=== PATIENT | male | born 1960 | race Caucasian/White ===

== ENCOUNTER 2016-05-01 10:16 | Emergency (ER) | payer MEDICARE ==
[2016-05-01] MEDS ORDERED: CYCLOBENZAPRINE 10 MG TABLET PO STA (10:44)
[2016-05-01] MEDS ORDERED: LIDOCAINE PATCH 5% TOP STA (10:44)
[2016-05-01] MEDS ORDERED: LIDOCAINE PATCH 5% TOP ONE (10:47)
[2016-05-01] MEDS ORDERED: CYCLOBENZAPRINE 10 MG TABLET PO ONE (10:47)
== END 2016-05-01 11:03 | disposition home or self-care (01) ==
DX: S43.402A Unspecified sprain of left shoulder joint, initial encounter (principal); X58.XXXA Exposure to other specified factors, initial encounter; G40.909 Epilepsy, unspecified, not intractable, without status epilepticus

== ENCOUNTER 2016-05-01 17:18 | Emergency (ER) | payer MEDICARE ==
[2016-05-01] MEDS ORDERED: oxyCOD/ACETAMIN 5 MG/325 MG TABLET PO STA (17:46)
[2016-05-01] MEDS ORDERED: oxyCOD/ACETAMIN 5 MG/325 MG TABLET PO ONE (17:48)
== END 2016-05-01 19:02 | disposition home or self-care (01) ==
DX: S43.402A Unspecified sprain of left shoulder joint, initial encounter (principal); X58.XXXA Exposure to other specified factors, initial encounter; M25.812 Other specified joint disorders, left shoulder; G40.909 Epilepsy, unspecified, not intractable, without status epilepticus
CPT/HCPCS: 36415; 73030; 84484; 93005; 93010; 99283; 99284; A9270

== ENCOUNTER 2016-05-02 15:32 | Emergency (ER) | payer MEDICARE ==
[2016-05-02] MEDS ORDERED: oxyCOD/ACETAMIN 5 MG/325 MG TABLET PO STA (16:22)
[2016-05-02] MEDS ORDERED: oxyCOD/ACETAMIN 5 MG/325 MG TABLET PO ONE (16:32)
== END 2016-05-02 16:43 | disposition home or self-care (01) ==
DX: M25.512 Pain in left shoulder (principal); Z91.14 Patient's other noncompliance with medication regimen
CPT/HCPCS: 99283; A9270

== ENCOUNTER 2016-05-17 13:34 | Outpatient (CLI) | payer MEDICARE | END 2016-05-17 13:35 | disposition home or self-care (01) | DX: G40.109 Localization-related (focal) (partial) symptomatic epilepsy and epileptic syndromes with simple partial seizures, not intractable, without status epilepticus (principal) ==

== ENCOUNTER 2016-05-23 09:53 | Outpatient (CLI) | payer MEDICARE | END 2016-05-23 09:54 | disposition home or self-care (01) | DX: M19.071 Primary osteoarthritis, right ankle and foot (principal) ==

== ENCOUNTER 2016-07-08 09:04 | Outpatient (CLI) | payer MEDICARE | END 2016-07-08 09:05 | disposition home or self-care (01) | DX: M19.071 Primary osteoarthritis, right ankle and foot (principal); S92.414D Nondisplaced fracture of proximal phalanx of right great toe, subsequent encounter for fracture with routine healing ==

== ENCOUNTER 2016-07-23 09:13 | Outpatient (CLI) | payer MEDICARE | END 2016-07-23 09:14 | disposition home or self-care (01) | DX: G40.109 Localization-related (focal) (partial) symptomatic epilepsy and epileptic syndromes with simple partial seizures, not intractable, without status epilepticus (principal) ==

== ENCOUNTER 2016-10-05 15:13 | Outpatient (CLI) | payer MEDICARE ==
--- NOTE | 2016-10-06 09:05 | XRAY Report ---
COMPLETE LUMBAR SPINE: 10/05/2016 CLINICAL INDICATION: Chronic low back pain. COMPARISON: 07/05/2013 FINDINGS: AP, lateral, oblique, coned-down views of the lumbar spine demonstrate mild degenerative d isc and facet disease. Mild anterior wedge compression deformity of L1 is stable. Bilateral L5 pars defects are stable, with stable minimal anterolisthesis of L5 on S1. There is no evidence of interv al fracture. IMPRESSION: STABLE MILD DEGENERATIVE CHANGES, BILATERAL L5 PARS DEFECTS, AND MILD COMPRESSION DEFORM ITY OF L1. NO SIGNIFICANT INTERVAL CHANGE FROM 07/05/2013. JOB #: [id number] EXT JOB #:[id number]
== END 2016-10-05 15:14 | disposition home or self-care (01) ==
LOC: DI.N 15:13
PROVIDERS: ATTEND Family Medicine
DX: M51.16 Intervertebral disc disorders with radiculopathy, lumbar region (principal); M47.896 Other spondylosis, lumbar region; M43.8X6 Other specified deforming dorsopathies, lumbar region
CPT/HCPCS: 72110

== ENCOUNTER 2017-01-29 15:38 | Emergency (ER) | payer MEDICARE ==
[2017-01-29 16:00] VITALS: BP 152/85
[2017-01-29] MEDS ORDERED: oxyCODONE 5 MG TABLET PO STA (16:29)
--- NOTE | 2017-01-29 16:35 | ED Physician Documentation ---
History of Present Illness - Stated complaint Stated Complaint: TOOTH ACHE - Chief complaint Chief Complaint: Heent - Additonal information Additional information: hx from pt right upper 2nd molar pain has dentist appt for same tomorrow tried motrin and apap s relief (2 of each) no transport to pharmacy as buses dont run on Monday no fever Review of Systems Constitutional: denies: Fever Throat: reports: Dental pain / toothache PD PAST MEDICAL HISTORY - Past Medical History Past Medical History: Yes Respiratory: Pneumonia Neuro: Head injury, Seizure disorder, Other - Past Surgical History Past Surgical History: Yes - Present Medications Home Medications: Ambulatory Orders Medication Instructions Recorded Confirmed Lamotrigine 300 mg PO BID 03/04/13 01/29/17 Ibuprofen 400 mg PO ONCE PRN 07/27/15 01/29/17 levETIRAcetam [Keppra] 500 mg PO BID 08/02/15 01/29/17 - Allergies Allergies/Adverse Reactions: Allergies Allergy/AdvReac Type Severity Reaction Status Date / Time phenytoin sodium * Allergy Unknown unknown Verified 07/29/15 19:31 [From Dilantin] phenytoin sodium extended * Allergy Unknown unknown Verified 07/29/15 19:31 [From Dilantin] - Social History Does the pt smoke?: No Smoking Status: Never smoker Does the pt drink ETOH?: No Does the pt have substance abuse?: No - Immunizations Immunizations are current?: Yes - POLST Patient has POLST: No PD ED PE NORMAL - Vitals Vital signs reviewed: Yes - HEENT HEENT: Other (prior dental work and fillings, right upper 2nd molar s visible decay or abscess but tender, no trisumus or farcial swelling) - Cardiac Cardiac: RRR - Respiratory Respiratory: No respiratory distress Results - Vitals Vitals: Vital Signs - 24 hr 01/29/17 15:52 Temperature 36.7 C Heart Rate 56 L Respiratory 16 Rate Blood Pressure 152/85 H O2 Saturation 98 Oxygen O2 Source Room air Departure - Departure Disposition: 01 Home, Self Care Clinical Impression: Pain, dental Condition: Good Instructions: ED Tooth Pain Comments: The pain medication we gave you in the ER should last until you see the dentist tomorrow Please follow up with your PMD to get your blood pressure rechecked - it was high today
[2017-01-29] MEDS ORDERED: oxyCODONE 5 MG TABLET ONE (16:43)
== END 2017-01-29 16:43 | disposition home or self-care (01) ==
LOC: ED 15:38
DX: K08.89 Other specified disorders of teeth and supporting structures (principal); G40.909 Epilepsy, unspecified, not intractable, without status epilepticus
CPT/HCPCS: 99283

== ENCOUNTER 2017-01-29 17:35 | Emergency (ER) | payer MEDICARE ==
--- NOTE | 2017-01-29 19:11 | ED Physician Documentation ---
PD HPI LOWER EXT INJURY - Stated complaint Stated Complaint: RT TOE LAC - Chief complaint Chief Complaint: Laceration - History obtained from History obtained from: Patient - History of Present Illness PD HPI LOW EXT INJURY LOCATION: Left, Toe (great) Type of injury: Laceration (he was cutting nail (thick fungal nail) with scalpel and it slipped causing cut to top of toe.) Where injury occurred: Home Timing - onset: Today Timing - details: Abrupt onset, Still present (still bleeding some.) Associated symptoms: No: Weakness, Numbness Similar symptoms before: Has not had sx before Recently seen: Emergency Dept (for tooth problem earlier) Review of Systems Neurologic: denies: Focal weakness, Numbness PD PAST MEDICAL HISTORY - Past Medical History Past Medical History: Yes Respiratory: Pneumonia Neuro: Head injury, Seizure disorder, Other - Past Surgical History Past Surgical History: Yes - Present Medications Home Medications: Ambulatory Orders Medication Instructions Recorded Confirmed Lamotrigine 300 mg PO BID 03/04/13 01/29/17 Ibuprofen 400 mg PO ONCE PRN 07/27/15 01/29/17 levETIRAcetam [Keppra] 500 mg PO BID 08/02/15 01/29/17 - Allergies Allergies/Adverse Reactions: Allergies Allergy/AdvReac Type Severity Reaction Status Date / Time phenytoin sodium * Allergy Unknown unknown Verified 07/29/15 19:31 [From Dilantin] phenytoin sodium extended * Allergy Unknown unknown Verified 07/29/15 19:31 [From Dilantin] - Social History Does the pt smoke?: No Smoking Status: Never smoker Does the pt drink ETOH?: No Does the pt have substance abuse?: No - Immunizations Immunizations are current?: No Immunizations: TDAP >10years/unknown - POLST Patient has POLST: No PD ED PE NORMAL - Vitals Vital signs reviewed: Yes - General General: Alert and oriented X 3, No acute distress, Well developed/nourished - Derm Derm: Normal color, Warm and dry - Extremities Extremities: Other (dorsum left great toe with 1.5 cm lac not to deep structures. ) - Neuro Neuro: No motor deficit, No sensory deficit Results - Vitals Vitals: Oxygen O2 Source Room air Procedures - Laceration (location) dorsum left great toe Length in cm: 1.5 Wound type: Linear Neurovascular status: No: Sensory intact, Motor intact Anesthesia: Lidocaine 1% with epi Wound Preparation: Irrigated copiously NS Skin layer closure: Nylon, Running, Size #-0 - enter number (4), Sutures - enter # (8) Other: Patient tolerated well, No complications, Neurovascular intact, Dressing applied, Tetanus UTD Complexity: Simple PD MEDICAL DECISION MAKING - ED course Complexity details: considered differential, d/w patient Departure - Departure Disposition: 01 Home, Self Care Clinical Impression: Laceration of toe Qualifiers: Encounter type: initial encounter Toe: great toe Damage to nail status: without damage Foreign body presence: without foreign body Laterality: left Qualified Code(s): S91.112A - Laceration without foreign body of left great toe without damage to nail, initial encounter Condition: Stable Record reviewed to determine appropriate education?: Yes Instructions: ED Laceration Foot Follow-Up: London Ponce MD [Primary Care Provider] - Comments: It is okay to wash and shower. Clean off the wound twice a day with soap and water, or peroxide and water. Apply some antibiotic ointment to it to keep it moist. Also to watch for signs of infection such as purulence, redness or increasing pain. Return to your primary care or the ER at the specified time for suture removal. Suture removal and 10-12 days. Tylenol or ibuprofen if needed for pain. Regular activity is okay. Discharge Date/Time: 01/29/17 19:46
[2017-01-29 19:49] VITALS: BP 141/84
== END 2017-01-29 19:46 | disposition home or self-care (01) ==
LOC: ED 17:35
DX: S91.112A Laceration without foreign body of left great toe without damage to nail, initial encounter (principal); W26.8XXA Contact with other sharp object(s), not elsewhere classified, initial encounter; Y92.019 Unspecified place in single-family (private) house as the place of occurrence of the external cause; G40.909 Epilepsy, unspecified, not intractable, without status epilepticus; K08.89 Other specified disorders of teeth and supporting structures
CPT/HCPCS: 12001; 99282; 99283; A9270

== ENCOUNTER 2017-01-31 16:28 | Emergency (ER) | payer MEDICARE ==
[2017-01-31 16:40] VITALS: BP 173/95
[2017-01-31] MEDS: DEXAMETHASONE 10 MG/ML VIAL PO STA (17:40)
--- NOTE | 2017-01-31 17:41 | ED Physician Documentation ---
PD HPI HEENT - Stated complaint Stated Complaint: TOOTH PX - Chief complaint Chief Complaint: Heent - History obtained from History obtained from: Patient - History of Present Illness Timing - onset: How many days ago (4) Timing - duration: Days (4) Timing - details: Gradual onset, Still present Location: Tooth Improves: Medication Associated symptoms: Other (all teeth hurt this afternoon.). No: Fever, Congestion, Rhinorrhea, Trismus, Unable to swallow, Swollen nodes, Facial swelling, Headache, Cough Similar symptoms before: Has not had sx before Recently seen: Other (dentist) - Additional information Additional information: 56-year-old male with a seizure disorder who is status post traumatic brain injury has developed some pain in a tooth in the right upper jaw. He went to see Dr. Gonsales And has appointment to be seen again tomorrow morning. The patient will try a mouthguard. He is here now because he has had a migration of the pain he had up into his face and some swelling in his face. He also is having a strange sensation of all of his teeth hurting or vibrating and this is each tooth. Review of Systems Constitutional: denies: Fever, Chills, Myalgias, Fatigue Eyes: denies: Decreased vision Ears: denies: Ear pain Nose: denies: Rhinorrhea / runny nose, Congestion Throat: reports: Dental pain / toothache. denies: Oral lesions / sores, Sore throat, Swollen tonsils Cardiac: denies: Chest pain / pressure Respiratory: denies: Dyspnea, Cough PD PAST MEDICAL HISTORY - Past Medical History Past Medical History: Yes Respiratory: Pneumonia Neuro: Head injury, Seizure disorder, Other - Past Surgical History Past Surgical History: Yes - Present Medications Home Medications: Ambulatory Orders Medication Instructions Recorded Confirmed Lamotrigine 300 mg PO BID 03/04/13 01/31/17 Ibuprofen 400 mg PO ONCE PRN 07/27/15 01/31/17 levETIRAcetam [Keppra] 500 mg PO BID 08/02/15 01/31/17 Amox/Clav 875/125 [Augmentin] 1 each PO Q12H #14 tablet 01/31/17 - Allergies Allergies/Adverse Reactions: Allergies Allergy/AdvReac Type Severity Reaction Status Date / Time No Known Drug Allergies Allergy Verified 01/31/17 17:08 - Social History Does the pt smoke?: No Smoking Status: Never smoker Does the pt drink ETOH?: No Does the pt have substance abuse?: No - Immunizations Immunizations are current?: Yes Immunizations: TDAP >10years/unknown - POLST Patient has POLST: No PD ED PE NORMAL - Vitals Vital signs reviewed: Yes (Tachycardic and hypertensive) - General General: No acute distress, Well developed/nourished - HEENT HEENT: PERRL, EOMI, Ears normal, Moist mucous membranes, Pharynx benign, Other ( #3 is tender with surrounding gum swelling. There is mild swelling to the face over the right maxillary sinus. There is skull deformity to the left mormon from prior TBI) - Neck Neck: Supple, no meningeal sign, No bony TTP - Respiratory Respiratory: No respiratory distress - Derm Derm: Normal color, Warm and dry, No rash - Extremities Extremities: No deformity, No edema - Neuro Neuro: No motor deficit, No sensory deficit, Normal speech - Psych Psych: Normal mood, Normal affect PD ED PE EXPANDED - HEENT HEENT Visual: 1 - swelling, tenderness Results - Vitals Vitals: Vital Signs - 24 hr 01/31/17 16:34 Temperature 36.4 C L Heart Rate 109 H Respiratory 16 Rate Blood Pressure 173/95 H O2 Saturation 100 Oxygen O2 Source Room air PD MEDICAL DECISION MAKING - ED course Complexity details: reviewed old records, considered differential, d/w patient ED course: 56-year-old male with a history of traumatic brain injury has poor recall of all of the events recently. He has been into see the emergency department with a bad tooth 2 days ago and he went into see Dr. Gonsales in follow-up. He continues to have some pain and some swelling that is up into the face and here in the emergency department we have given him some Augmentin and dexamethasone. He does have an appointment to see the dentist in the morning. 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 Departure - Departure Disposition: 01 Home, Self Care Clinical Impression: Pain, dental Condition: Stable Instructions: ED Tooth Pain Follow-Up: London Ponce MD [Primary Care Provider] - Prescriptions: Amox/Clav 875/125 [Augmentin] 1 each PO Q12H #14 tablet Comments: Today it appears the pain you are having is coming from a tooth in the right upper jaw. You have been given a dose of Augmentin and I have written a prescription for some more to be taken. Follow up with Dr. Gonsales as previously planned. We did give you a dose of dexamethasone today for the swelling and inflammation.
[2017-01-31] MEDS ORDERED: DEXAMETHASONE 10 MG/ML VIAL ONE (17:43)
[2017-01-31] MEDS: AMOX/CLAV 875 MG/125 MG TABLET PO STA (17:49)
[2017-01-31] MEDS ORDERED: AMOX/CLAV 875 MG/125 MG TABLET PO ONE (17:54)
== END 2017-01-31 17:53 | disposition home or self-care (01) ==
LOC: ED 16:28
DX: K08.89 Other specified disorders of teeth and supporting structures (principal); Z87.820 Personal history of traumatic brain injury
CPT/HCPCS: 99283; A9270

== ENCOUNTER 2017-03-12 08:55 | Emergency (ER) | payer MEDICARE ==
[2017-03-12 09:07] VITALS: BP 137/71
[2017-03-12] MEDS ORDERED: KETOROLAC 30 MG/ML VIAL IM STA (09:40)
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
[2017-03-12] MEDS ORDERED: KETOROLAC 30 MG/ML VIAL ONE (09:48)
== END 2017-03-12 10:07 | disposition home or self-care (01) ==
LOC: ED 08:55
DX: M25.562 Pain in left knee (principal); G40.909 Epilepsy, unspecified, not intractable, without status epilepticus
CPT/HCPCS: 96372; 99283

== ENCOUNTER 2017-03-13 01:50 | Emergency (ER) | payer MEDICARE ==
[2017-03-13 01:56] VITALS: BP 149/90
[2017-03-13] MEDS ORDERED: ACETAMINOPHEN 500 MG TABLET PO STA (02:02)
[2017-03-13] MEDS ORDERED: DEXAMETHASONE 10 MG/ML VIAL PO STA (02:02)
--- NOTE | 2017-03-13 02:06 | ED Physician Documentation ---
PD HPI LOWER EXT INJURY - Stated complaint Stated Complaint: L LEG PAIN - Chief complaint Chief Complaint: Ext Problem - History obtained from History obtained from: Patient - History of Present Illness PD HPI LOW EXT INJURY LOCATION: Left, Knee Where injury occurred: Home, Street Timing - onset: Today Timing - details: Gradual onset Worsened by: Moving, Palpating Associated symptoms: No: Weakness, Numbness, Swelling Similar symptoms before: Work up / diagnostics, Treatment Recently seen: Emergency Dept - Additional information Additional information: Patient is a 57 year old male with a history of a prior tbi who is presenting to the emergency department for left knee pain. Patient states that he is an avid bike rider and he thinks that the direction of his clip in pedals was a little off, causing him to work a different part of his knee. patient came to the emergency department today and was diagnosed with tendonitis, but came back since his pain came back. Review of Systems Constitutional: denies: Fever, Chills Eyes: reports: Reviewed and negative Ears: reports: Reviewed and negative Nose: reports: Reviewed and negative Throat: reports: Reviewed and negative Cardiac: reports: Reviewed and negative Respiratory: reports: Reviewed and negative GI: reports: Reviewed and negative : reports: Reviewed and negative Skin: denies: Rash, Lesions, Abrasion (s) Musculoskeletal: reports: Extremity pain Neurologic: reports: Confused. denies: Generalized weakness, Focal weakness, Numbness Immunocompromised: denies: Immunocompromised PD PAST MEDICAL HISTORY - Past Medical History Respiratory: Pneumonia Neuro: Head injury, Seizure disorder, Other - Past Surgical History Past Surgical History: Yes - Present Medications Home Medications: Ambulatory Orders Medication Instructions Recorded Confirmed Lamotrigine 300 mg PO BID 03/04/13 01/31/17 Ibuprofen 400 mg PO ONCE PRN 07/27/15 01/31/17 levETIRAcetam [Keppra] 500 mg PO BID 08/02/15 01/31/17 - Allergies Allergies/Adverse Reactions: Allergies Allergy/AdvReac Type Severity Reaction Status Date / Time No Known Drug Allergies Allergy Verified 03/12/17 09:07 - Social History Does the pt smoke?: No Smoking Status: Never smoker Does the pt drink ETOH?: No Does the pt have substance abuse?: No - Immunizations Immunizations are current?: Yes Immunizations: TDAP >10years/unknown - POLST Patient has POLST: No PD ED PE NORMAL - Vitals Vital signs reviewed: Yes - General General: No acute distress, Well developed/nourished - HEENT HEENT: PERRL, Moist mucous membranes - Neck Neck: Supple, no meningeal sign - Cardiac Cardiac: RRR, No murmur - Respiratory Respiratory: No respiratory distress - Abdomen Abdomen: Non distended - Derm Derm: Normal color, Warm and dry, No rash - Extremities Extremities: No edema, No calf tenderness / cord - Neuro Neuro: Alert and oriented X 3, No motor deficit, No sensory deficit, Normal speech PD ED PE EXPANDED - General General: Alert, No acute distress, Well developed/nourished - HEENT HEENT: Other (skull deformity from prior tbi) - Extremities Extremities: Left knee (mild tenderness to palpation of left knee, no deformity , no bony abnormality, full rom). No: Swelling, Bruising, Abrasion, Joint effusion, Ligament laxity Results - Vitals Vitals: Vital Signs - 24 hr 03/13/17 01:55 Temperature 36 C L Heart Rate 57 L Respiratory 16 Rate Blood Pressure 149/90 H O2 Saturation 100 Oxygen O2 Source Room air PD MEDICAL DECISION MAKING - ED course Complexity details: reviewed old records, reviewed results, re-evaluated patient , considered differential, d/w patient ED course: Patient was seen and examined at bedside. patient was well appearing and in no acute distress. previous records were reviewed and I agree with the assessment of the prior physician. There was no indication for imaging at this time. 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 Patient was treated with tylenol and decadron. patient required no further work up and was stable for discharge with outpatient follow up. Departure - Departure Disposition: 01 Home, Self Care Clinical Impression: Knee pain, left Condition: Good Instructions: ED RICE Follow-Up: Ori Thornton MD [Provider Admit Priv/Credential] - As Needed Comments: Your symptoms today are likely due to strained tendon/ligaments. X-rays will not be helpful at this time and your symptoms should improve with conservative treatment with motrin/tylenol ice, elevation and rest. If your symptoms persist you should follow up with your doctor, or dr. thornton and his associates.
[2017-03-13] MEDS ORDERED: ACETAMINOPHEN 500 MG TABLET PO ONE (02:10)
[2017-03-13] MEDS ORDERED: DEXAMETHASONE 10 MG/ML VIAL ONE (02:10)
[2017-03-13] MEDS ORDERED: CHERRY SYRUP 10 ML UDC PO ONE (02:10)
== END 2017-03-13 02:15 | disposition home or self-care (01) ==
LOC: ED 01:50
DX: M25.562 Pain in left knee (principal); G40.909 Epilepsy, unspecified, not intractable, without status epilepticus; Z87.820 Personal history of traumatic brain injury
CPT/HCPCS: 99283; A9270

== ENCOUNTER 2017-03-15 08:08 | Outpatient (CLI) | payer MEDICARE ==
--- NOTE | 2017-03-15 13:11 | XRAY Report ---
THREE VIEW LEFT KNEE: 03/15/2017 CLINICAL INDICATION: Pain. FINDINGS: AP, lateral, and sunrise views of the left knee demonstrate minimal osteoarthritis, with t iny osteophytes. There is no evidence of fracture or dislocation. No effusion is present. IMPRESSION: MINIMAL OSTEOARTHRITIS. JOB #: [id number] EXT JOB #:[id number]
== END 2017-03-15 08:09 | disposition home or self-care (01) ==
LOC: DI 08:08
PROVIDERS: ATTEND Family Medicine
DX: M17.12 Unilateral primary osteoarthritis, left knee (principal)

== ENCOUNTER 2017-04-16 00:06 | Emergency (ER) | payer MEDICARE ==
[2017-04-16 00:17] VITALS: BP 144/82
--- NOTE | 2017-04-16 00:29 | ED Physician Documentation ---
PD HPI WOUND RECHECK - Stated complaint Stated Complaint: RT BIG TOE PAIN - Chief complaint Chief Complaint: Ext Problem - Histroy obtained from History obtained from: Patient - History of Present Illness Location: Other (R great toe) Timing - onset: How many weeks ago (4) Pain level max: 0 Pain level now: 0 Associated symptoms: No: Fever, Redness, Swelling, Drainage, Pain - Additional information Additional information: sutures placed 1 month ago in R great toe. never followed up to have them removed. Review of Systems Constitutional: denies: Fever Skin: denies: Rash PD PAST MEDICAL HISTORY - Past Medical History Past Medical History: Yes Respiratory: Pneumonia Neuro: Head injury, Seizure disorder, Other - Past Surgical History Past Surgical History: Yes - Present Medications Home Medications: Ambulatory Orders Medication Instructions Recorded Confirmed Lamotrigine 300 mg PO BID 03/04/13 01/31/17 Ibuprofen 400 mg PO ONCE PRN 07/27/15 01/31/17 levETIRAcetam [Keppra] 500 mg PO BID 08/02/15 01/31/17 - Allergies Allergies/Adverse Reactions: Allergies Allergy/AdvReac Type Severity Reaction Status Date / Time No Known Drug Allergies Allergy Verified 03/12/17 09:07 - Social History Does the pt smoke?: No Smoking Status: Never smoker Does the pt drink ETOH?: Yes Does the pt have substance abuse?: No - Immunizations Immunizations are current?: Yes Immunizations: TDAP >10years/unknown - POLST Patient has POLST: No PD ED PE NORMAL - Vitals Vital signs reviewed: Yes - General General: Alert and oriented X 3, No acute distress - HEENT HEENT: Moist mucous membranes - Respiratory Respiratory: No respiratory distress, Clear bilaterally - Derm Derm: Warm and dry, Other (dorsum of R great toe - sutures in place. no redness , swelling or drainage. ) - Neuro Neuro: Alert and oriented X 3 - Psych Psych: Normal mood, Normal affect Results - Vitals Vitals: Vital Signs - 24 hr 04/16/17 00:10 Temperature 36.0 C L Heart Rate 54 L Respiratory 18 Rate Blood Pressure 144/82 H O2 Saturation 100 Oxygen O2 Source Room air PD MEDICAL DECISION MAKING - ED course Complexity details: reviewed old records, considered differential, d/w patient ED course: Patient is a 57-year-old male who has sutures in the right great toe. These were removed in the emergency department. No evidence of infection. Bandage placed over the removed suture area. Laceration is well-healed. Patient counseled regarding signs and symptoms for which I believe and urgent re- evaluation would be necessary. Patient with good understanding of and agreement to plan and is comfortable going home at this time This document was made in part using voice recognition software. While efforts are made to proofread this document, sound alike and grammatical errors may occur. Departure - Departure Disposition: 01 Home, Self Care Clinical Impression: Visit for suture removal Condition: Good Instructions: ED Wound Check Sutr Remove No Infec Follow-Up: your,doctor as needed. [Other] Comments: Return if you worsen. Discharge Date/Time: 04/16/17 00:47
[2017-04-16] MEDS ORDERED: BACITRACIN OINT TOP STA (00:34)
== END 2017-04-16 00:47 | disposition home or self-care (01) ==
LOC: ED 00:06
DX: Z48.02 Encounter for removal of sutures (principal)
CPT/HCPCS: 99281; 99283; A9270

== ENCOUNTER 2017-06-01 06:33 | Observation (INO) | payer MEDICARE ==
[2017-06-01] MEDS ORDERED: SODIUM CHLORIDE 0.9% 1,000 ML IV ONE (06:46)
[2017-06-01] MEDS ORDERED: ONDANSETRON 4 MG/2 ML VIAL IVP STA (06:46)
[2017-06-01 07:04] LABS: BASOPHILS # (AUTO) 0.1 10^3/uL (0.0-0.1); BASOPHILS % (AUTO) 0.5 %; EOSINOPHILS % (AUTO) 0.1 %; LYMPHOCYTES # (AUTO) 0.8 10^3/uL (1.5-3.5); LYMPHOCYTES % (AUTO) 7.3 %; MEAN CORPUSCULAR HEMOGLOBIN 28.6 pg (27.0-31.0); MEAN CORPUSCULAR HGB CONC 32.7 g/dL (32.0-36.0); MEAN CORPUSCULAR VOLUME 87.6 fL (80.0-94.0); MEAN PLATELET VOLUME 7.8 fL (7.4-11.4); MONOCYTES # (AUTO) 0.3 10^3/uL (0.0-1.0); MONOCYTES % (AUTO) 2.8 %; NEUTROPHILS # (AUTO) 9.5 10^3/uL (1.5-6.6); NEUTROPHILS % (AUTO) 89.3 %; PLT - PLATELET COUNT 252 10^3/uL (130-450); RED BLOOD COUNT 4.88 10^6/uL (4.70-6.10); RED CELL DISTRIBUTION WIDTH 13.4 % (12.0-15.0); WHITE BLOOD COUNT 10.7 x10^3/uL (4.8-10.8)
[2017-06-01 07:28] LABS: ALBUMIN 4.9 g/dL (3.2-5.5); ALBUMIN/GLOBULIN RATIO 1.6 (1.0-2.2); ALKALINE PHOSPHATASE 80 IU/L (42-121); ALT ALANINE AMINOTRANSFERASE 22 IU/L (10-60); AST ASPARTATE AMINOTRANSFERASE 27 IU/L (10-42); BILIRUBIN,TOTAL 0.5 mg/dL (0.2-1.0); BUN - BLOOD UREA NITROGEN 18 mg/dL (6-20); CALCIUM 9.6 mg/dL (8.5-10.3); CARBON DIOXIDE - CO2 25 mmol/L (21-32); CHLORIDE 97 mmol/L (101-111); CREATININE 0.9 mg/dL (0.6-1.2); GFR - MDRD 87 (>89); GLUCOSE 135 mg/dL (70-100); SODIUM 137 mmol/L (135-145); TOTAL PROTEIN 7.9 g/dL (6.7-8.2)
[2017-06-01 07:29] LABS: LIPASE < 10 U/L (22-51)
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
[2017-06-01] MEDS ORDERED: ACETAMINOPHEN 1,000 MG/100 ML 100 ML IV STA (07:36)
[2017-06-01] MEDS ORDERED: IOPAMIDOL-300 100 ML VIAL ONE (07:55)
[2017-06-01] MEDS ORDERED: IOPAMIDOL-300 100 ML VIAL IVP ONE (08:26)
--- NOTE | 2017-06-01 08:54 | CT Report ---
EXAM: CT ABDOMEN AND PELVIS EXAM DATE: 06/01/2017 08:21 AM. CLINICAL HISTORY: Right abd pain. COMPARISONS: CT abdomen and pelvis 03/04/2013. TECHNIQUE: Routine helical CT imaging was performed through the abdomen and pelvis. IV contrast: 100 cc Isovue-300. Enteric contrast: No. Reconstructions: Coronal and sagittal. In accordance with CT protocol optimization, one or more of the following dose reduction techniques w ere utilized for this exam: automated exposure control, adjustment of mA and/or KV based on patient s ize, or use of iterative reconstructive technique. FINDINGS: Lung Bases: Increased mild bilateral dependent atelectasis. Cardiac enlargement redemonstrated. Liver: Lobulated focal hypodense mass within the posterior right hepatic lobe measures approximately 4.5 x 7.1 in the axial plane with maximum oblique diameter on sagittal imaging of 6.8 cm. This compar es with 4.5 x 7.3 x 7.0 cm previously. There small areas of nodular peripheral enhancement and this m ay represent a hemangioma. Stability is consistent with a benign finding. 9 mm hypodensity within the posterior inferior right lobe is stable consistent with a benign finding such as a cyst or hemangiom a. Gallbladder/Bile Ducts: Cholelithiasis redemonstrated. No gallbladder dilatation, surrounding inflamm ation or ductal dilatation demonstrated. Spleen: Normal. Pancreas: Atrophic but unchanged and otherwise normal. Adrenal Glands: Normal. Kidneys: Normal. No masses or hydronephrosis. Peritoneal Cavity/Bowel: There are mild free fluid in the pelvis and abdomen. No free air or ronald ly mphadenopathy. The appendix is well visualized and normal. There are numerous dilated proximal and mid small bowel loops, measuring up to 4 cm, ranging from air distended to totally fluid opacified as well as multiple air-fluid levels. There are decompressed di stal small bowel loops. This is consistent with a small bowel obstruction. The level of transition ap pears to be just to the right of the midline within the mid upper pelvis as demonstrated on series 3, images 68 through 72 and coronal images 22 through 25 and sagittal images 39 through 44. This could be due to adhesion. Some focal wall thickening of the bowel at that level is not exclu ded and an underlying pathologic lesion is not excluded on this exam. Pelvic Organs: Normal. The bladder and visualized pelvic organs are within normal limits. Vasculature: Calcifications, without aneurysm. Bones: Stable degenerative and chronic changes lumbar spine including bilateral L5 spondylolysis and mild grade 1 L5-S1 anterior listhesis. Other: Right-sided ventriculoperitoneal shunt catheter again demonstrated, again entering the abdomen just anterior medial to the lower aspect of the right hepatic lobe. Previously it projected inferola terally into the abdomen but now loops superiorly anterior to the liver, with the tip beneath the mauro phragm, overlying the anterior superior hepatic dome. No loculated fluid collections demonstrated. IMPRESSION: 1. Findings consistent with a small bowel obstruction with transition to the right of midline within the mid to upper pelvis, as discussed above. 2. Small amount of free fluid. 3. 7.3 cm hepatic mass is similar to mildly decreased compared with 2013, consistent with a benign fi nding. A smaller hepatic density is also stable. 4. Cardiac enlargement redemonstrated. 5. Cholelithiasis redemonstrated. 6. Right ventriculoperitoneal shunt again demonstrated, now projecting superiorly beneath the right h emidiaphragm. 7. Additional stable chronic findings, as above. [facility] Referring Provider Line: [phone] SITE ID: [id number]
[2017-06-01] MEDS ORDERED: ACETAMINOPHEN 325 MG TABLET PO PRN (14:03)
[2017-06-01] MEDS ORDERED: SODIUM CHLORIDE FLUSH 0.9% 10 ML SYRINGE IVP PRN (14:03)
[2017-06-01] MEDS ORDERED: MORPHINE 2 MG/ML CARPUJECT IVP PRN (14:03)
[2017-06-01] MEDS ORDERED: ONDANSETRON 4 MG/2 ML VIAL IVP PRN (14:03)
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
[2017-06-01] MEDS ORDERED: SODIUM CHLORIDE FLUSH 0.9% 10 ML SYRINGE ONE (14:40)
[2017-06-01] MEDS ORDERED: LACTATED RINGERS 1,000 ML IV SCH (15:00)
[2017-06-01] MEDS: SODIUM CHLORIDE FLUSH 0.9% 10 ML SYRINGE IVP SCH (17:58)
--- NOTE | 2017-06-01 18:37 | XRAY Report ---
EXAM: SMALL BOWEL FOLLOW-THROUGH EXAM DATE: 06/01/2017 05:49 PM. CLINICAL HISTORY: Possible small bowel obstruction. COMPARISONS: None. TECHNIQUE: Routine small bowel follow-through technique. Fluoroscopy Time: 0. FINDINGS: Stomach: Normal gastric mucosal pattern. No ulcers identified. Duodenum: Normal duodenal mucosal pattern. No ulcers or diverticula identified. Jejunum: Mildly dilated jejunum on initial film. Normal mucosal pattern. No masses or obstruction. Ileum: Normal mucosal pattern. No masses or obstruction. There is passage of contrast into the entire colon on the 6 hour film. Other: Contrast noted in the upper collecting systems and bladder. IMPRESSION: Mildly dilated jejunum on 1 hour film, decompressed on the 2 hour and 6 hour films, with contrast in the entire colon on the 6 hour film. [facility] Referring Provider Line: [phone] SITE ID: [id number]
--- NOTE | 2017-06-01 20:19 | Discharge Plan ---
Discharge Plan Disposition: 01 Home, Self Care Condition: Good Diet: Soft Activity Restrictions: No Restrictions Shower Restrictions: No Driving Restrictions: No Instruction Topics: Constipation Additional Instructions or Follow Up instructions: take stool softener three times daily. Follow up with your PCP in 1-2 weeks. No Smoking: If you smoke, Please STOP! Call for help.
--- NOTE | 2017-06-01 20:21 | DISCHARGE SUMMARY ---
Discharge Summary Admit Date: 06/01/17 Discharge Date: 06/02/17 Discharging Provider: Anali Condition at Discharge: Good Discharge Disposition: 01 Home, Self Care - DIAGNOSES Admission Diagnoses: abdominal pain Discharge Diagnoses with Status of Each Condition: constipation - HPI History of Present Illness: This is a 57-year-old male who presented to the emergency department with a one- day episode of abdominal pain. He underwent CT scan of the abdomen which demonstrated dilated loops of small bowel suggestive of a small bowel obstruction. He underwent a small bowel series which at 2 hours still did not demonstrate contrast in the colon and he was subsequently admitted for observation for possible small bowel obstruction. - HOSPITAL COURSE Hospital Course: Upon completion of the small bowel series it 6 hours he was noted to have contrast throughout his colon and did have bowel movement. He was started on soft diet which he tolerated well. Upon discharge the patient was tolerating diet, passing gas with resolution of his symptoms. - ALLERGIES Allergies/Adverse Reactions: Allergies Allergy/AdvReac Type Severity Reaction Status Date / Time No Known Drug Allergies Allergy Verified 06/01/17 06:42 - MEDICATIONS Home Medications: Ambulatory Orders Medication Instructions Recorded Confirmed Lamotrigine 100 mg PO BID 03/04/13 06/01/17 levETIRAcetam [Keppra] 500 mg PO BID 08/02/15 06/01/17 - PHYSICAL EXAM AT DISCHARGE General Appearance: positive: No acute distress Respiratory: positive: No respiratory distress Cardiovascular: positive: Regular rate & rhythm Abdomen: positive: Non-tender, No distention Extremities: positive: No pedal edema - LABS Result Diagrams: 06/01/17 06:50 06/01/17 06:50 - FOLLOW UP Follow Up: PCP - TIME SPENT Time Spent in Discharge (Minutes): 30
[2017-06-01] MEDS: lamoTRIgine 100 MG TABLET PO SCH (21:27)
[2017-06-01] MEDS: levETIRAcetam 500 MG/5 ML UDC PO SCH (21:27)
[2017-06-01] MEDS ORDERED: levETIRAcetam 100 MG/ML 473ML BOTTLE PO SCH (22:00)
[2017-06-02] MEDS ORDERED: PANTOPRAZOLE 40 MG VIAL IVP SCH (07:00)
[2017-06-02] MEDS: SODIUM CHLORIDE FLUSH 0.9% 10 ML SYRINGE IVP SCH (07:00)
[2017-06-02 07:57] VITALS: BP 130/90
[2017-06-02] MEDS: levETIRAcetam 500 MG/5 ML UDC PO SCH (08:12)
[2017-06-02] MEDS: lamoTRIgine 100 MG TABLET PO SCH (08:12)
== END 2017-06-02 09:30 | disposition home or self-care (01) ==
LOC: ED 06:33 → OBS 14:03
PROVIDERS: ADMIT Surgery; ATTEND Surgery
DX: K59.00 Constipation, unspecified (principal); G40.909 Epilepsy, unspecified, not intractable, without status epilepticus; Z87.820 Personal history of traumatic brain injury
CPT/HCPCS: 74177; 74250; 80053; 83690; 85025; 87275; 87276; 96361; 96365; 96375; 99284; A9270; G0378; J0131; J7120; Q9967; 99283

== ENCOUNTER 2017-06-06 08:14 | Emergency (ER) | payer MEDICARE ==
[2017-06-06] MEDS ORDERED: PEG 3350/NA SULF,BICARB,CL/KCL 4,000 ML BOTTLE PO ONE (09:55)
--- NOTE | 2017-06-06 09:55 | ED Physician Documentation ---
History of Present Illness - Stated complaint Stated Complaint: CONSTIPATION - Chief complaint Chief Complaint: Abd Pain - Additonal information Additional information: hx from pt seen and admitted 06/01 for abd pain partial SBO had CT and small bowel follow through see Dr Carol Ann katz summar since dc only small hard BMs denies feelign rectal painimpaction no NV not swollen Review of Systems Constitutional: denies: Fever GI: reports: Constipation. denies: Vomiting PD PAST MEDICAL HISTORY - Past Medical History Past Medical History: Yes Respiratory: Pneumonia Neuro: Head injury, Seizure disorder, Other Psych: None - Past Surgical History Past Surgical History: Yes - Present Medications Home Medications: Ambulatory Orders Medication Instructions Recorded Confirmed Lamotrigine 100 mg PO BID 03/04/13 06/01/17 levETIRAcetam [Keppra] 500 mg PO BID 08/02/15 06/01/17 - Allergies Allergies/Adverse Reactions: Allergies Allergy/AdvReac Type Severity Reaction Status Date / Time No Known Drug Allergies Allergy Verified 06/01/17 06:42 - Social History Does the pt smoke?: No Smoking Status: Never smoker Does the pt drink ETOH?: No Does the pt have substance abuse?: No - Immunizations Immunizations are current?: Yes Immunizations: TDAP >10years/unknown - POLST Patient has POLST: No PD ED PE NORMAL - Vitals Vital signs reviewed: Yes - Cardiac Cardiac: RRR - Respiratory Respiratory: No respiratory distress, Clear bilaterally - Abdomen Abdomen: Normal bowel sounds, Soft, Non tender, Non distended - Neuro Neuro: Alert and oriented X 3 Results - Vitals Vitals: Vital Signs - 24 hr 06/06/17 08:23 Temperature 36.4 C L Heart Rate 62 Respiratory 16 Rate Blood Pressure 124/92 H O2 Saturation 100 Oxygen O2 Source Room air PD MEDICAL DECISION MAKING - ED course ED course: pt has already had an extensive work up within the week likely constipation from contrast will give blanche clarke home Departure - Departure Disposition: 01 Home, Self Care Clinical Impression: Constipation Qualifiers: Constipation type: unspecified constipation type Qualified Code(s): K59.00 - Constipation, unspecified Condition: Good Instructions: ED Constipation Follow-Up: Gerardo Brownlee MD [Primary Care Provider] - Comments: Drink several large sips of the Go-Lytely every 10 minutes until you are pooping clear liquid. After that be sure to drink plenty of fluids and eat fruits ad veggies for fiber Please follow up with your PMD to discuss getting a colonoscopy if you have not had one recently
[2017-06-06 10:15] VITALS: BP 136/85
== END 2017-06-06 10:21 | disposition home or self-care (01) ==
LOC: ED 08:14
DX: K59.00 Constipation, unspecified (principal); G40.909 Epilepsy, unspecified, not intractable, without status epilepticus
CPT/HCPCS: 99283; A9270

== ENCOUNTER 2017-08-10 00:04 | Emergency (ER) | payer MEDICARE ==
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
[2017-08-10] MEDS ORDERED: HYDROcod/ACET 5/325 Prepack 4 PO STA (00:34)
[2017-08-10 00:49] VITALS: BP 117/84
== END 2017-08-10 00:49 | disposition home or self-care (01) ==
LOC: ED 00:04
DX: G40.909 Epilepsy, unspecified, not intractable, without status epilepticus (principal); S33.5XXA Sprain of ligaments of lumbar spine, initial encounter; V18.4XXA Pedal cycle driver injured in noncollision transport accident in traffic accident, initial encounter; Y93.55 Activity, bike riding
CPT/HCPCS: 99283

== ENCOUNTER 2017-08-12 00:51 | Emergency (ER) | payer MEDICARE ==
[2017-08-12 01:02] VITALS: BP 131/82
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
[2017-08-12] MEDS ORDERED: HYDROcod/ACETAM 5/325 MG TABLET PO STA ×2 (01:16→02:07)
[2017-08-12] MEDS ORDERED: KETOROLAC 30 MG/ML VIAL IM STA (01:16)
--- NOTE | 2017-08-12 01:59 | XRAY Preliminary Report ---
Exam: XR RIBS W/PA CHEST RT IMPRESSION: Chronic findings. No acute disease. [facility] SITE ID: [id number]
--- NOTE | 2017-08-12 01:59 | XRAY Report ---
EXAM: RIGHT RIB RADIOGRAPHY EXAM DATE: 08/12/2017 01:45 AM. CLINICAL HISTORY: Fall with injury right posterior thoracic. COMPARISON: Chest dated 27 July 2015. TECHNIQUE: 1 view of the chest and 4 views of the ribs. FINDINGS: Bones: Multiple old right rib fractures. No definite acute fracture or other bone lesion. Lungs: Clear. No effusion or pneumothorax. Mediastinum: Heart and mediastinal contours are unremarkable. Upper lobe vessels not distended. Other: Right [employer] shunt. IMPRESSION: Chronic findings. No acute disease. [facility] Referring Provider Line: [phone] SITE ID: [id number]
[2017-08-12] MEDS ORDERED: HYDROcod/ACET 5/325 Prepack 4 PO STA (02:07)
== END 2017-08-12 02:47 | disposition home or self-care (01) ==
LOC: ED 00:51
DX: S20.221D Contusion of right back wall of thorax, subsequent encounter (principal); M54.6 Pain in thoracic spine; V19.9XXD Pedal cyclist (driver) (passenger) injured in unspecified traffic accident, subsequent encounter
CPT/HCPCS: 71101; 96372; 99283; A9270

== ENCOUNTER 2018-01-09 16:25 | Emergency (ER) | payer MEDICARE ==
[2018-01-09 16:52] VITALS: BP 158/97
[2018-01-09 17:42] LABS: BILIRUBIN,URINE NEGATIVE (NEGATIVE); GLUCOSE, URINE (UA) NEGATIVE (NEGATIVE); KETONES,URINE (UA) NEGATIVE (NEGATIVE); LEUKOCYTE ESTERASE, URINE NEGATIVE (NEGATIVE); NITRITE,URINE NEGATIVE (NEGATIVE); OCCULT BLOOD,URINE TRACE-LYSE (NEGATIVE); PROTEIN,URINE NEGATIVE (NEGATIVE); UROBILINOGEN,URINE 0.2 (NORMAL) E.U./dL (NORMAL)
[2018-01-09 17:49] LABS: CLARITY,URINE CLEAR (CLEAR)
== END 2018-01-09 18:20 | disposition left against medical advice (07) ==
LOC: ED 16:25
DX: Z53.21 Procedure and treatment not carried out due to patient leaving prior to being seen by health care provider (principal)
CPT/HCPCS: 80053; 81001; 81003; 83690; 85025; 87086

== ENCOUNTER 2018-01-10 11:50 | Emergency (ER) | payer MEDICARE ==
[2018-01-10 12:41] LABS: BILIRUBIN,URINE NEGATIVE (NEGATIVE); CLARITY,URINE CLEAR (CLEAR); GLUCOSE, URINE (UA) NEGATIVE (NEGATIVE); KETONES,URINE (UA) NEGATIVE (NEGATIVE); LEUKOCYTE ESTERASE, URINE NEGATIVE (NEGATIVE); NITRITE,URINE NEGATIVE (NEGATIVE); OCCULT BLOOD,URINE TRACE-INTA (NEGATIVE); PH,URINE 6.5 PH (5.0-7.5); PROTEIN,URINE NEGATIVE (NEGATIVE); UROBILINOGEN,URINE 0.2 (NORMAL) E.U./dL (NORMAL)
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
[2018-01-10 13:30] LABS: BASOPHILS % (AUTO) 0.6 %; EOSINOPHILS % (AUTO) 0.7 %; HGB - HEMOGLOBIN 13.3 g/dL (14.0-18.0); LYMPHOCYTES # (AUTO) 0.8 10^3/uL (1.5-3.5); MEAN CORPUSCULAR HEMOGLOBIN 30.1 pg (27.0-31.0); MEAN CORPUSCULAR VOLUME 88.6 fL (80.0-94.0); MEAN PLATELET VOLUME 6.9 fL (7.4-11.4); MONOCYTES # (AUTO) 0.4 10^3/uL (0.0-1.0); MONOCYTES % (AUTO) 5.3 %; NEUTROPHILS # (AUTO) 5.6 10^3/uL (1.5-6.6); NEUTROPHILS % (AUTO) 81.4 %; PLT - PLATELET COUNT 245 10^3/uL (130-450); RED BLOOD COUNT 4.43 10^6/uL (4.70-6.10); RED CELL DISTRIBUTION WIDTH 12.7 % (12.0-15.0); WHITE BLOOD COUNT 6.9 x10^3/uL (4.8-10.8)
[2018-01-10 13:39] LABS: ALBUMIN 4.5 g/dL (3.2-5.5); ALBUMIN/GLOBULIN RATIO 1.7 (1.0-2.2); BILIRUBIN,TOTAL 0.5 mg/dL (0.2-1.0); CALCIUM 9.7 mg/dL (8.5-10.3); CREATININE 0.8 mg/dL (0.6-1.2); TOTAL PROTEIN 7.1 g/dL (6.7-8.2)
[2018-01-10 14:42] VITALS: BP 138/85
== END 2018-01-10 14:41 | disposition home or self-care (01) ==
LOC: ED 11:50
DX: E86.0 Dehydration (principal); Z87.820 Personal history of traumatic brain injury
CPT/HCPCS: 36415; 80053; 81001; 81003; 83690; 84484; 85025; 87086; 99283; 99284

== ENCOUNTER 2018-01-15 11:24 | Emergency (ER) | payer MEDICARE ==
[2018-01-15 12:20] LABS: BASOPHILS % (AUTO) 0.4 %; EOSINOPHILS # (AUTO) 0.1 10^3/uL (0.0-0.7); EOSINOPHILS % (AUTO) 1.1 %; HGB - HEMOGLOBIN 13.4 g/dL (14.0-18.0); LYMPHOCYTES # (AUTO) 0.9 10^3/uL (1.5-3.5); LYMPHOCYTES % (AUTO) 13.3 %; MEAN CORPUSCULAR HEMOGLOBIN 29.9 pg (27.0-31.0); MEAN CORPUSCULAR HGB CONC 33.8 g/dL (32.0-36.0); MEAN CORPUSCULAR VOLUME 88.6 fL (80.0-94.0); MEAN PLATELET VOLUME 7.4 fL (7.4-11.4); MONOCYTES # (AUTO) 0.3 10^3/uL (0.0-1.0); MONOCYTES % (AUTO) 4.4 %; NEUTROPHILS # (AUTO) 5.7 10^3/uL (1.5-6.6); NEUTROPHILS % (AUTO) 80.8 %; PLT - PLATELET COUNT 260 10^3/uL (130-450); RED BLOOD COUNT 4.49 10^6/uL (4.70-6.10); RED CELL DISTRIBUTION WIDTH 12.9 % (12.0-15.0)
[2018-01-15 12:33] LABS: ALBUMIN 4.4 g/dL (3.2-5.5); ALBUMIN/GLOBULIN RATIO 1.5 (1.0-2.2); BILIRUBIN,TOTAL 0.5 mg/dL (0.2-1.0); CALCIUM 9.7 mg/dL (8.5-10.3); TOTAL PROTEIN 7.4 g/dL (6.7-8.2)
--- NOTE | 2018-01-15 12:46 | XRAY Report ---
Reason: syncopal episodes Procedure Date: 01/15/2018 Accession Number: [id number] / [id number] Procedure: XR - Chest 2 View X-Ray CPT Code: 34742 FULL RESULT: EXAM: CHEST RADIOGRAPHY EXAM DATE: 01/15/2018 11:54 AM. CLINICAL HISTORY: Syncopal episodes. COMPARISON: RIBS W/PA CHEST RT 08/12/2017 1:21 AM. TECHNIQUE: 2 views. FINDINGS: Lungs/Pleura: No focal opacities evident. No pleural effusion. No pneumothorax. Normal volumes. Mediastinum: Heart and mediastinal contours are unremarkable. Other: Stable configuration of a presumed right neck shunt catheter terminating in the right suprahepatic region. There is no evidence of catheter interruption. IMPRESSION: No acute cardiopulmonary abnormality. If intracranial imaging demonstrates interval dilation of ventricular spaces and the catheter is confirmed as a ventriculoperitoneal shunt, a nuclear medicine shunt patency study could be considered on a routine basis if clinically indicated. [facility]
[2018-01-15] MEDS ORDERED: DEXAMETHASONE 10 MG/ML VIAL PO STA (13:16)
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
[2018-01-15 13:36] VITALS: BP 117/66
== END 2018-01-15 13:48 | disposition home or self-care (01) ==
LOC: ED 11:24
DX: H66.001 Acute suppurative otitis media without spontaneous rupture of ear drum, right ear (principal); Z87.820 Personal history of traumatic brain injury; E86.0 Dehydration
CPT/HCPCS: 36415; 71046; 80053; 83690; 84484; 85025; 93005; 99283

== ENCOUNTER 2018-01-16 10:48 | Emergency (ER) | payer MEDICARE ==
--- NOTE | 2018-01-16 11:29 | ED Physician Documentation ---
History of Present Illness - Stated complaint Stated Complaint: MED REACTION - Chief complaint Chief Complaint: General - Additonal information Additional information: hx from pt seen in ED yesterday for balance issues and dx R AOM and txed with decadrion and zmax'right after taking his first dose of zmax he felt very jittiery no other new meds specifically no sudafed no caffeine otherwise well - no fever cogh NVD etc he is certain the zmax caused the sx because it started immed after - but the decadron he was given was prob more likely to have caused these sx Review of Systems Constitutional: denies: Fever Ears: denies: Ear pain Respiratory: denies: Cough GI: denies: Vomiting PD PAST MEDICAL HISTORY - Past Medical History Past Medical History: Yes Cardiovascular: None Respiratory: Pneumonia Neuro: Other Endocrine/Autoimmune: None GI: None : None HEENT: None Psych: None Musculoskeletal: None Derm: None - Past Surgical History Past Surgical History: Yes - Present Medications Home Medications: Ambulatory Orders Medication Instructions Recorded Confirmed Lamotrigine 100 mg PO BID 03/04/13 06/01/17 levETIRAcetam [Keppra] 500 mg PO BID 08/02/15 06/01/17 Azithromycin [Zithromax] 250 mg PO DAILY #6 tablet 01/15/18 - Allergies Allergies/Adverse Reactions: Allergies Allergy/AdvReac Type Severity Reaction Status Date / Time No Known Drug Allergies Allergy Verified 01/15/18 11:34 - Social History Does the pt smoke?: No Smoking Status: Never smoker Does the pt drink ETOH?: No Does the pt have substance abuse?: No - Immunizations Immunizations are current?: Yes Immunizations: TDAP >10years/unknown - POLST Patient has POLST: No PD ED PE NORMAL - Vitals Vital signs reviewed: Yes - General General: Alert and oriented X 3, Other (calm no teremor) - HEENT HEENT: PERRL, Ears normal (desirae TMS slightly dull but rodney and without purlent fluid) - Cardiac Cardiac: RRR - Respiratory Respiratory: No respiratory distress, Clear bilaterally Results - Vitals Vitals: Vital Signs - 24 hr 01/16/18 10:50 Temperature 35.8 C L Heart Rate 64 Respiratory 18 Rate Blood Pressure 166/96 H O2 Saturation 100 Oxygen O2 Source Room air PD MEDICAL DECISION MAKING - Sepsis Event Vital Signs: Vital Signs - 24 hr 01/16/18 10:50 Temperature 35.8 C L Heart Rate 64 Respiratory 18 Rate Blood Pressure 166/96 H O2 Saturation 100 Oxygen O2 Source Room air Departure - Departure Disposition: 01 Home, Self Care Clinical Impression: Medication reaction Qualifiers: Encounter type: initial encounter Qualified Code(s): T50.905A - Adverse effect of unspecified drugs, medicaments and biological substances, initial encounter Condition: Good Comments: Your ear looks much better today - the steroids you were given yesterday may have opened the eustachian tube and helped drain any fluid I don't think you need to take any more antibiotics. Please stop the antibiotic. Zithromax lasts about 24 hr so the symptoms may last much of the day Follow up with your PMD for a recheck if not better tomorrow And please get your blood pressure rechecked - it is a little bit high today
[2018-01-16 12:17] VITALS: BP 145/89
== END 2018-01-16 12:16 | disposition home or self-care (01) ==
LOC: ED 10:48
DX: R45.0 Nervousness (principal); T36.3X5A Adverse effect of macrolides, initial encounter; R03.0 Elevated blood-pressure reading, without diagnosis of hypertension
CPT/HCPCS: 99283

== ENCOUNTER 2018-01-22 10:13 | Emergency (ER) | payer MEDICARE ==
[2018-01-22 11:16] LABS: BILIRUBIN,URINE NEGATIVE (NEGATIVE); GLUCOSE, URINE (UA) NEGATIVE (NEGATIVE); KETONES,URINE (UA) NEGATIVE (NEGATIVE); LEUKOCYTE ESTERASE, URINE NEGATIVE (NEGATIVE); NITRITE,URINE NEGATIVE (NEGATIVE); OCCULT BLOOD,URINE SMALL (NEGATIVE); PH,URINE 5.5 PH (5.0-7.5); PROTEIN,URINE NEGATIVE (NEGATIVE); UROBILINOGEN,URINE 0.2 (NORMAL) E.U./dL (NORMAL)
[2018-01-22 11:18] LABS: CLARITY,URINE CLEAR (CLEAR)
[2018-01-22 11:35] LABS: BASOPHILS % (AUTO) 0.7 %; EOSINOPHILS # (AUTO) 0.1 10^3/uL (0.0-0.7); EOSINOPHILS % (AUTO) 1.5 %; HGB - HEMOGLOBIN 13.3 g/dL (14.0-18.0); LYMPHOCYTES # (AUTO) 1.1 10^3/uL (1.5-3.5); MEAN CORPUSCULAR HEMOGLOBIN 30.3 pg (27.0-31.0); MEAN CORPUSCULAR HGB CONC 34.1 g/dL (32.0-36.0); MEAN CORPUSCULAR VOLUME 88.9 fL (80.0-94.0); MEAN PLATELET VOLUME 7.3 fL (7.4-11.4); MONOCYTES # (AUTO) 0.4 10^3/uL (0.0-1.0); MONOCYTES % (AUTO) 5.5 %; NEUTROPHILS # (AUTO) 4.8 10^3/uL (1.5-6.6); NEUTROPHILS % (AUTO) 75.3 %; PLT - PLATELET COUNT 266 10^3/uL (130-450); RED BLOOD COUNT 4.39 10^6/uL (4.70-6.10); RED CELL DISTRIBUTION WIDTH 13.1 % (12.0-15.0); WHITE BLOOD COUNT 6.3 x10^3/uL (4.8-10.8)
[2018-01-22 11:48] LABS: CREATININE 0.8 mg/dL (0.6-1.2)
[2018-01-22 11:54] LABS: BACTERIA,URINE None Seen /HPF (None Seen); RBC,URINE 0-5 /HPF (0-5); SQUAMOUS EPITHELIAL CELL,UR FEW Squamous (<= Few)
[2018-01-22] MEDS ORDERED: MECLIZINE 12.5 MG TABLET PO STA (12:13)
--- NOTE | 2018-01-22 12:16 | ED Physician Documentation ---
History of Present Illness - Stated complaint Stated Complaint: DROWSY/WEAKNESS - Chief complaint Chief Complaint: General - Additonal information Additional information: hx from pt 57 male to ED for inter episodes of feeling dizzy and off balance and legs int weak and giving out no focal numbenss or weakness - just in overall body wide weakness has been seen in ED multiple times for these sx first d AOM rx zmax had adverse rxn to zmax and his ears looked better so that was stopped his sx continues so he restarted the zmax s any improvement he fears the ear infection has spread throughout his body no [employer] CP AP or palp Review of Systems Constitutional: denies: Fever, Chills Ears: denies: Ear pain Cardiac: denies: Chest pain / pressure, Palpitations Respiratory: denies: Dyspnea GI: denies: Abdominal Pain, Nausea, Vomiting Neurologic: reports: Other (vertigo). denies: Focal weakness, Numbness, Difficulty speaking, Headache PD PAST MEDICAL HISTORY - Past Medical History Past Medical History: Yes Cardiovascular: None Respiratory: Pneumonia Neuro: Other Endocrine/Autoimmune: None GI: None : None HEENT: None Psych: None Musculoskeletal: None Derm: None - Past Surgical History Past Surgical History: Yes - Present Medications Home Medications: Ambulatory Orders Medication Instructions Recorded Confirmed Lamotrigine 100 mg PO BID 03/04/13 06/01/17 levETIRAcetam [Keppra] 500 mg PO BID 08/02/15 06/01/17 Carbamide Peroxide Otic Drop 5 drops OT BID #1 bottle 01/22/18 [Debrox Otic Drops] Meclizine [Antivert] 25 mg PO Q6H PRN #20 tablet 01/22/18 - Allergies Allergies/Adverse Reactions: Allergies Allergy/AdvReac Type Severity Reaction Status Date / Time No Known Drug Allergies Allergy Verified 01/22/18 10:27 - Social History Does the pt smoke?: No Smoking Status: Never smoker Does the pt drink ETOH?: No Does the pt have substance abuse?: No - Immunizations Immunizations are current?: Yes Immunizations: TDAP >10years/unknown - POLST Patient has POLST: No PD ED PE NORMAL - Vitals Vital signs reviewed: Yes - General General: Alert and oriented X 3 - HEENT HEENT: PERRL, Other (prior crani). No: Ears normal (impacted cerumen now as he has been using qtis, vis TM rodney and benign) - Neck Neck: Supple, no meningeal sign - Cardiac Cardiac: RRR, No murmur - Respiratory Respiratory: No respiratory distress, Clear bilaterally - Derm Derm: Normal color - Neuro Neuro: Alert and oriented X 3, sys dir 2-12 intact, No motor deficit, No sensory deficit, Normal speech Eye Opening: Spontaneous Motor: Obeys Commands Verbal: Oriented GCS Score: 15 Results - Vitals Vitals: Vital Signs - 24 hr 01/22/18 01/22/18 10:24 12:30 Temperature 36.5 C 36.4 C L Heart Rate 54 L 59 L Respiratory 16 18 Rate Blood Pressure 142/91 H 148/86 H O2 Saturation 100 99 Oxygen O2 Source Room air - Labs Labs: Laboratory Tests 01/22/18 01/22/18 01/22/18 10:42 11:03 11:15 WBC 6.3 RBC 4.39 L Hgb 13.3 L Hct 39.0 L MCV 88.9 MCH 30.3 MCHC 34.1 RDW 13.1 Plt Count 266 MPV 7.3 L Neut # (Auto) 4.8 Lymph # (Auto) 1.1 L [place] # (Auto) 0.4 Eos # (Auto) 0.1 Baso # (Auto) 0.0 Absolute Nucleated RBC 0.00 Nucleated RBC % 0.0 Sodium 136 Potassium 4.3 Chloride 101 Carbon Dioxide 29 Anion Gap 6.0 BUN 15 Creatinine 0.8 Estimated GFR (MDRD) 100 Glucose 106 H Calcium 9.0 Troponin I Urine Color YELLOW Urine Clarity CLEAR Urine pH 5.5 Ur Specific [place] 1.025 Urine Protein NEGATIVE Urine Glucose (UA) NEGATIVE Urine Ketones NEGATIVE Urine Occult Blood SMALL H Urine Nitrite NEGATIVE Urine Bilirubin NEGATIVE Urine Urobilinogen 0.2 (NORMAL) Ur Leukocyte Esterase NEGATIVE Urine RBC 0-5 Urine WBC 0-3 Ur Squamous Epith Cells FEW Squamous Urine Bacteria None Seen Ur Microscopic Review INDICATED Urine Culture Comments NOT INDICATED 01/22/18 11:15 WBC RBC Hgb Hct MCV MCH MCHC RDW Plt Count MPV Neut # (Auto) Lymph # (Auto) [place] # (Auto) Eos # (Auto) Baso # (Auto) Absolute Nucleated RBC Nucleated RBC % Sodium Potassium Chloride Carbon Dioxide Anion Gap BUN Creatinine Estimated GFR (MDRD) Glucose Calcium Troponin I < 0.04 Urine Color Urine Clarity Urine pH Ur Specific [place] Urine Protein Urine Glucose (UA) Urine Ketones Urine Occult Blood Urine Nitrite Urine Bilirubin Urine Urobilinogen Ur Leukocyte Esterase Urine RBC Urine WBC Ur Squamous Epith Cells Urine Bacteria Ur Microscopic Review Urine Culture Comments PD MEDICAL DECISION MAKING - ED course ED course: advised pt that ER wup is reassuring but he is not having an episode now that I can actually eval in progress suggested pt check his HR and BP is sx reoccur - Sepsis Event Vital Signs: Vital Signs - 24 hr 01/22/18 01/22/18 10:24 12:30 Temperature 36.5 C 36.4 C L Heart Rate 54 L 59 L Respiratory 16 18 Rate Blood Pressure 142/91 H 148/86 H O2 Saturation 100 99 Oxygen O2 Source Room air Departure - Departure Disposition: Home, Self Care Clinical Impression: Vertigo Condition: Good Instructions: ED Vertigo Unspecified Follow-Up: Gerardo Brownlee MD [Primary Care Provider] - Prescriptions: Carbamide Peroxide Otic Drop [Debrox Otic Drops] 5 drops OT BID #1 bottle Meclizine [Antivert] 25 mg PO Q6H PRN #20 tablet PRN Reason: Dizziness Comments: You do not have a middle ear infection and do not need more antibiotics I think your weakness and dizziness is due to an ear problem - just not an infection requiring antibiotics - these symptoms are often caused by particulate matter, some times calcium sometimes viral, in the sensory chambers of your inner ear - taking meclizine and doing the exercises I gave you should help - al so I prescribed medication to dissolve the wax in your outer ear We also ran tests on the rest of your body and your heart liver kidney and pancreas are all fine Discharge Date/Time: 01/22/18 12:42
[2018-01-22 12:32] VITALS: BP 148/86
== END 2018-01-22 12:42 | disposition home or self-care (01) ==
LOC: ED 10:13
DX: R42 Dizziness and giddiness (principal)
CPT/HCPCS: 36415; 80048; 81001; 84484; 85025; 99283; A9270; 81003; 87086

== ENCOUNTER 2018-01-29 19:52 | Emergency (ER) | payer MEDICARE ==
[2018-01-29 20:02] VITALS: BP 136/97
[2018-01-29] MEDS ORDERED: traZODone 50 MG TABLET PO STA (20:45)
--- NOTE | 2018-01-29 20:47 | ED Physician Documentation ---
History of Present Illness - Stated complaint Stated Complaint: NOT SLEEPING - Chief complaint Chief Complaint: General - History obtained from History obtained from: Patient - History of Present Illness Timing: Other (57-year-old gentleman with history of traumatic brain injury presents with 3 nights of insomnia. He tried melatonin a week ago which was too strong and then more recently tried a homeopathic agent without relief. He notes no dietary or lifestyle changes that would cause this except for potentially decreased exercise, he rides his bike a lot and has not been doing it so much lately.) Review of Systems Respiratory: denies: Dyspnea, Cough GI: denies: Abdominal Pain, Nausea, Vomiting, Diarrhea Neurologic: denies: Headache, Head injury, LOC PD PAST MEDICAL HISTORY - Past Medical History Cardiovascular: None Respiratory: Pneumonia Neuro: Other Endocrine/Autoimmune: None GI: None : None HEENT: None Psych: None Musculoskeletal: None Derm: None - Past Surgical History Past Surgical History: Yes - Present Medications Home Medications: Ambulatory Orders Medication Instructions Recorded Confirmed Lamotrigine 100 mg PO BID 03/04/13 01/29/18 levETIRAcetam [Keppra] 500 mg PO BID 08/02/15 01/29/18 - Allergies Allergies/Adverse Reactions: Allergies Allergy/AdvReac Type Severity Reaction Status Date / Time No Known Drug Allergies Allergy Verified 01/29/18 20:02 - Social History Does the pt smoke?: No Smoking Status: Never smoker Does the pt drink ETOH?: No Does the pt have substance abuse?: No - Immunizations Immunizations are current?: Yes Immunizations: TDAP >10years/unknown - POLST Patient has POLST: No PD ED PE NORMAL - Vitals Vital signs reviewed: Yes - General General: Alert and oriented X 3, No acute distress, Other (He is actually sleeping when I go in the room but is easily Arousable) - HEENT HEENT: PERRL, EOMI - Neck Neck: Supple, no meningeal sign, No bony TTP - Abdomen Abdomen: Soft, Non tender - Neuro Neuro: Alert and oriented X 3, fitness technician 2-12 intact, No motor deficit, No sensory deficit, Normal speech Results - Vitals Vitals: Vital Signs - 24 hr 01/29/18 19:58 Temperature 36.4 C L Heart Rate 52 L Respiratory 16 Rate Blood Pressure 136/97 H O2 Saturation 100 Oxygen O2 Source Room air PD MEDICAL DECISION MAKING - ED course ED course: 57-year-old gentleman with history of insomnia For 3 days. I offered him something to help him sleep. He became quite insistent that he would like me to anesthetize him and "knock him out" with a shot. He would like to be sedated like in a surgical procedure. I discussed with him that this is completely inappropriate. I did offer him trazodone to go, but he became a little belligerent and contesting discharge. I discussed with him that there was no me dical emergency and advised him to follow-up with his doctor. - Sepsis Event Vital Signs: Vital Signs - 24 hr 01/29/18 19:58 Temperature 36.4 C L Heart Rate 52 L Respiratory 16 Rate Blood Pressure 136/97 H O2 Saturation 100 Oxygen O2 Source Room air Departure - Departure Disposition: 01 Home, Self Care Clinical Impression: Insomnia Qualifiers: Insomnia type: primary Qualified Code(s): F51.01 - Primary insomnia Condition: Good Record reviewed to determine appropriate education?: Yes Instructions: ED Insomnia Comments: Follow-up with your doctor tomorrow for further evaluation and treatment. As discussed the emergency department will not sedate you or anesthetize you for insomnia.
== END 2018-01-29 21:02 | disposition home or self-care (01) ==
LOC: ED 19:52
DX: F51.01 Primary insomnia (principal); Z87.820 Personal history of traumatic brain injury
CPT/HCPCS: 99282; 99283; A9270

== ENCOUNTER 2018-01-31 16:23 | Emergency (ER) | payer MEDICARE ==
--- NOTE | 2018-01-31 17:41 | ED Physician Documentation ---
PD HPI ALTERED MENTAL STATUS - Stated complaint Stated Complaint: SHAKY - Chief complaint Chief Complaint: Neuro - History obtained from History obtained from: Patient - History of Present Illness Timing - onset: Other (57-year-old gentleman with history of severe traumatic brain injury, although recovered well and now lives alone. Seen the other night for insomnia. Saw his physician in the interim and given Halcion. He has been very shaky for the last couple of days and it is disheartening although he is sleeping now.) Review of Systems Constitutional: denies: Fever, Chills Cardiac: denies: Chest pain / pressure, Palpitations Respiratory: denies: Dyspnea, Cough PD PAST MEDICAL HISTORY - Past Medical History Cardiovascular: None Respiratory: Pneumonia Neuro: Other Endocrine/Autoimmune: None GI: None : None HEENT: None Psych: None Musculoskeletal: None Derm: None - Past Surgical History Past Surgical History: Yes - Present Medications Home Medications: Ambulatory Orders Medication Instructions Recorded Confirmed Lamotrigine 100 mg PO BID 03/04/13 01/29/18 levETIRAcetam [Keppra] 500 mg PO BID 08/02/15 01/29/18 Triazolam 0.5 tab 01/31/18 - Allergies Allergies/Adverse Reactions: Allergies Allergy/AdvReac Type Severity Reaction Status Date / Time No Known Drug Allergies Allergy Verified 01/29/18 20:02 - Social History Does the pt smoke?: No Smoking Status: Never smoker Does the pt drink ETOH?: No Does the pt have substance abuse?: No - Immunizations Immunizations are current?: Yes Immunizations: TDAP >10years/unknown - POLST Patient has POLST: No PD ED PE NORMAL - Vitals Vital signs reviewed: Yes - General General: Alert and oriented X 3, No acute distress - HEENT HEENT: PERRL, EOMI - Neck Neck: Supple, no meningeal sign, No bony TTP - Cardiac Cardiac: RRR, No murmur - Neuro Neuro: Alert and oriented X 3, motorcycle maker 2-12 intact Eye Opening: Spontaneous Motor: Obeys Commands Verbal: Oriented GCS Score: 15 - Psych Psych: Normal mood, Normal affect Results - Vitals Vitals: Vital Signs - 24 hr 01/31/18 16:29 Temperature 36.4 C L Heart Rate 66 Respiratory 20 Rate Blood Pressure 160/104 H O2 Saturation 100 Oxygen O2 Source Room air PD MEDICAL DECISION MAKING - ED course ED course: He is not shaky here, he seems to actually be on an even keel. We discussed starting a medication, however he seems adversely affected by even low doses of benzodiazepines so he was advised to follow-up with his physician for consideration of counseling or SSRI. - Sepsis Event Vital Signs: Vital Signs - 24 hr 01/31/18 16:29 Temperature 36.4 C L Heart Rate 66 Respiratory 20 Rate Blood Pressure 160/104 H O2 Saturation 100 Oxygen O2 Source Room air Departure - Departure Disposition: 01 Home, Self Care Clinical Impression: Shakiness Condition: Good Record reviewed to determine appropriate education?: Yes Comments: Follow-up with your doctor and discuss either counseling or an antidepressant medication for your symptoms. Return if worse. Your blood pressure was elevated today on check into the emergency department. This does not mean that you have hypertension, it is a common phenomenon to come to the emergency department and have elevated blood pressure. I recommend that you see your primary care physician within the week to have it rechecked when you are feeling better.
[2018-01-31 17:50] VITALS: BP 160/99
== END 2018-01-31 17:46 | disposition home or self-care (01) ==
LOC: ED 16:23
DX: R25.1 Tremor, unspecified (principal); R03.0 Elevated blood-pressure reading, without diagnosis of hypertension; Z87.820 Personal history of traumatic brain injury
CPT/HCPCS: 99283

== ENCOUNTER 2018-02-02 09:27 | Emergency (ER) | payer MEDICARE ==
[2018-02-02 10:45] LABS: BASOPHILS % (AUTO) 0.5 %; EOSINOPHILS # (AUTO) 0.1 10^3/uL (0.0-0.7); EOSINOPHILS % (AUTO) 1.6 %; HGB - HEMOGLOBIN 13.8 g/dL (14.0-18.0); LYMPHOCYTES # (AUTO) 0.9 10^3/uL (1.5-3.5); LYMPHOCYTES % (AUTO) 17.4 %; MEAN CORPUSCULAR HEMOGLOBIN 30.2 pg (27.0-31.0); MEAN CORPUSCULAR HGB CONC 34.3 g/dL (32.0-36.0); MEAN CORPUSCULAR VOLUME 87.8 fL (80.0-94.0); MEAN PLATELET VOLUME 7.4 fL (7.4-11.4); MONOCYTES # (AUTO) 0.3 10^3/uL (0.0-1.0); MONOCYTES % (AUTO) 6.4 %; NEUTROPHILS # (AUTO) 3.6 10^3/uL (1.5-6.6); NEUTROPHILS % (AUTO) 74.1 %; PLT - PLATELET COUNT 241 10^3/uL (130-450); RED BLOOD COUNT 4.58 10^6/uL (4.70-6.10); RED CELL DISTRIBUTION WIDTH 12.9 % (12.0-15.0); WHITE BLOOD COUNT 4.9 x10^3/uL (4.8-10.8)
[2018-02-02 10:53] LABS: MUDS CUTOFF CONCENTRATIONS CUTOFF CONC BELOW:
[2018-02-02 10:54] LABS: CALCIUM 9.7 mg/dL (8.5-10.3); CREATININE 0.7 mg/dL (0.6-1.2)
[2018-02-02 11:08] LABS: AMPHETAMINE SCREEN,URINE NEGATIVE (NEGATIVE); BENZODIAZEPINES SCREEN, URINE NEGATIVE (NEGATIVE); COCAINE SCREEN URINE NEGATIVE (NEGATIVE); METHADONE SCREEN, URINE NEGATIVE (NEGATIVE); METHAMPHETAMINES SCREEN, URINE NEGATIVE (NEGATIVE); OPIATE SCREEN, URINE NEGATIVE (NEGATIVE); OXYCODONE SCREEN, URINE NEGATIVE (NEGATIVE); PROPOXYPHENE SCREEN, URINE NEGATIVE (NEGATIVE); TRICYCLIC ANTIDEPRESSANT,URINE NEGATIVE (NEGATIVE)
--- NOTE | 2018-02-02 11:49 | CT Report ---
Reason: INTERMITTENT UNCONTROLLABLE SHAKING FOR 3 DAYS Procedure Date: 02/02/2018 Accession Number: [id number] / [id number] Procedure: CT - Head W/O CPT Code: FULL RESULT: EXAM: CT HEAD EXAM DATE: 02/02/2018 11:13 AM. CLINICAL HISTORY: Intermittent uncontrollable shaking for 3 days. COMPARISON: Head w/o contrast 07/29/2015 8:40 PM. TECHNIQUE: Multiaxial CT images were obtained from the foramen magnum to the vertex. Reformats: Sagittal and coronal. IV contrast: None. In accordance with CT protocol optimization, one or more of the following dose reduction techniques were utilized for this exam: automated exposure control, adjustment of mA and/or KV based on patient size, or use of iterative reconstructive technique. FINDINGS: Parenchyma: No intraparenchymal hemorrhage. Osorio-white differentiation is distinct. There is no interval midline shift. The patient is status post right frontal approach ventriculostomy catheter placement in unchanged configuration with associated encephalomalacia. Postsurgical changes, including a left craniectomy and left temporal and frontal lobe encephalomalacia are stable. Extraaxial Spaces: Stable. No subdural or epidural collections identified. Ventricles: Stable ventricular configuration with no herniation. Sinuses and Orbits: Imaged paranasal sinuses, orbits, and mastoids show no significant abnormality. Bones: No evidence of fracture or calvarial defect. Other: None. IMPRESSION: Stable examination with no acute intracranial abnormality. RADIA
[2018-02-02 13:15] VITALS: BP 144/92
--- NOTE | 2018-02-02 13:30 | ED Physician Documentation ---
History of Present Illness - Stated complaint Stated Complaint: JITTERY/SHAKING - Chief complaint Chief Complaint: General - History obtained from History obtained from: Patient - History of Present Illness Timing: Prior to arrival Pain level max: 0 Pain level now: 0 Quality: shaky Radiates to: no Improved by: nothing Worsened by: nothing - Additonal information Additional information: Pt stated have been having intermittent uncontrollable shaking the past 3 days while he's awake. States he feels something is telling him something. Denies hallucinations. Denies any associated symptoms including fever, headache, dizziness, LOC, generalized seizures. Pt was seen here in the E.R. last January 31 for the same. Denies any recent trauma, travel, or illness. States taking keppra and lamotrigine since he had a TBI from a ladder fall in 2008. Claims he sees his neurologist every year in march. Review of Systems Ten Systems: 10 systems reviewed and negative Constitutional: denies: Fever, Chills, Myalgias, Fatigue Nose: denies: Rhinorrhea / runny nose, Congestion Throat: denies: Sore throat Cardiac: denies: Chest pain / pressure Respiratory: denies: Dyspnea, Cough GI: denies: Abdominal Pain, Nausea, Vomiting, Diarrhea Neurologic: denies: Generalized weakness, Focal weakness, Numbness, Difficulty speaking, Near syncope, Seizure, Confused, Altered mental status, Headache, Head injury PD PAST MEDICAL HISTORY - Past Medical History Cardiovascular: None Respiratory: Pneumonia Neuro: Other Endocrine/Autoimmune: None GI: None : None HEENT: None Psych: None Musculoskeletal: None Derm: None - Past Surgical History Past Surgical History: Yes - Present Medications Home Medications: Ambulatory Orders Medication Instructions Recorded Confirmed RX: Lamotrigine 100 mg PO BID 03/04/13 01/29/18 RX: levETIRAcetam [Keppra] 500 mg PO BID 08/02/15 01/29/18 - Allergies Allergies/Adverse Reactions: Allergies Allergy/AdvReac Type Severity Reaction Status Date / Time No Known Drug Allergies Allergy Verified 02/02/18 09:34 - Social History Does the pt smoke?: No Smoking Status: Never smoker Does the pt drink ETOH?: No Does the pt have substance abuse?: No - Immunizations Immunizations are current?: Yes Immunizations: TDAP >10years/unknown - POLST Patient has POLST: No PD ED PE NORMAL - Vitals Vital signs reviewed: Yes - General General: Alert and oriented X 3, No acute distress, Well developed/nourished - HEENT HEENT: PERRL, EOMI, Moist mucous membranes, Pharynx benign - Neck Neck: Supple, no meningeal sign - Cardiac Cardiac: RRR, No murmur - Respiratory Respiratory: Clear bilaterally - Abdomen Abdomen: Normal bowel sounds, Soft, Non tender, Non distended - Back Back: No CVA TTP - Derm Derm: Normal color, Warm and dry, No rash - Extremities Extremities: No deformity, Normal ROM s pain, No edema - Neuro Neuro: Alert and oriented X 3, competitive shopper 2-12 intact, No motor deficit, No sensory deficit, Normal speech - Psych Psych: Normal mood, Normal affect Results - Vitals Vitals: Vital Signs - 24 hr 02/02/18 02/02/18 02/02/18 09:32 09:50 11:20 Temperature 36.3 C L Heart Rate 62 58 L 52 L Respiratory 20 12 11 L Rate Blood Pressure 166/104 H 137/87 H 143/98 H O2 Saturation 100 100 100 02/02/18 12:30 Temperature Heart Rate 48 L Respiratory 18 Rate Blood Pressure 144/92 H O2 Saturation 99 Oxygen O2 Source Room air - Labs Labs: Laboratory Tests 02/02/18 02/02/18 02/02/18 10:34 10:34 10:34 WBC 4.9 RBC 4.58 L Hgb 13.8 L Hct 40.2 L MCV 87.8 MCH 30.2 MCHC 34.3 RDW 12.9 Plt Count 241 MPV 7.4 Neut # (Auto) 3.6 Lymph # (Auto) 0.9 L [place] # (Auto) 0.3 Eos # (Auto) 0.1 Baso # (Auto) 0.0 Absolute Nucleated RBC 0.00 Nucleated RBC % 0.0 Sodium 137 Potassium 4.5 Chloride 101 Carbon Dioxide 29 Anion Gap 7.0 BUN 15 Creatinine 0.7 Estimated GFR (MDRD) 116 Glucose 96 Calcium 9.7 TSH 1.06 Urine Opiates Screen Ur Oxycodone Screen Urine Methadone Screen Ur Propoxyphene Screen Ur Barbiturates Screen Ur Tricyclics Screen Ur Phencyclidine Scrn Ur Amphetamine Screen U Methamphetamines Scrn U Benzodiazepines Scrn Urine Cocaine Screen U Cannabinoids Screen 02/02/18 10:46 WBC RBC Hgb Hct MCV MCH MCHC RDW Plt Count MPV Neut # (Auto) Lymph # (Auto) [place] # (Auto) Eos # (Auto) Baso # (Auto) Absolute Nucleated RBC Nucleated RBC % Sodium Potassium Chloride Carbon Dioxide Anion Gap BUN Creatinine Estimated GFR (MDRD) Glucose Calcium TSH Urine Opiates Screen NEGATIVE Ur Oxycodone Screen NEGATIVE Urine Methadone Screen NEGATIVE Ur Propoxyphene Screen NEGATIVE Ur Barbiturates Screen NEGATIVE Ur Tricyclics Screen NEGATIVE Ur Phencyclidine Scrn NEGATIVE Ur Amphetamine Screen NEGATIVE U Methamphetamines Scrn NEGATIVE U Benzodiazepines Scrn NEGATIVE Urine Cocaine Screen NEGATIVE U Cannabinoids Screen NEGATIVE PD MEDICAL DECISION MAKING - ED course Complexity details: re-evaluated patient (Pt informed of test results. Pt did not have any shaking episode in the E.R. Tolerated lunch. Wants to go home. He will follow up w/ his neurologist bharath. Informed him his keppra and lamotrigine levels have not been resulted. Instructed to call on monday for the results. ), considered differential (seizure, sequela of TBI, ICB, lyte imbalance), d/w patient, d/w family Departure - Departure Disposition: Home, Self Care Clinical Impression: Occasional tremors, Tremor Condition: Good Follow-Up: Gerardo Brownlee MD [Primary Care Provider] - Within 3 Days Comments: CALL YOUR NEUROLOGIST AND SCHEDULE AN APPOINTMENT A.S.A.P. TO EVALUATE YOUR "SHAKY" COMPLAINS AND MEDICATIONS. YOU SHOULD GET THE KEPPRA AND LAMOTRIGINE BLOOD LEVEL RESULTS AT OUR MEDICAL RECORDS TO SHOW YOUR NEUROLOGIST. CALL THE MEDICAL RECORDS ON MONDAY. MAINTAIN SAFETY. IF WORSE RETURN TO THE E.R. Discharge Date/Time: 02/02/18 13:45
[2018-02-06 08:01] LABS: LAMOTRIGINE 6.9 mcg/mL (4.0-18.0)
== END 2018-02-02 13:45 | disposition home or self-care (01) ==
LOC: ED 09:27
DX: R25.1 Tremor, unspecified (principal)
CPT/HCPCS: 36415; 70450; 80048; 80175; 80177; 80306; 84443; 85025; 99283